=== PATIENT | female | born 1960 | race Caucasian/White ===

== ENCOUNTER 2016-07-25 14:59 | Outpatient (CLI) | payer OTHER ==
[~2016-07-25 14:59] MED LIST: CYMBALTA30 MG PO; HYCET1 ML PO; TUMS500 MG; TURMERIC CURCU500 MG PO; VITAMIN D-31000 UNIT PO; [UNRECOGNIZED DRUG - OTHER] PO; [UNRECOGNIZED DRUG - OTHER] PO
--- NOTE | 2016-07-25 16:31 | DIAGNOSTIC IMAGING REPORT ---
PROCEDURE: US LTD BREAST ULTRASOUND - RT INDICATION: 6 MONTH FOLLOW UP TO CONFIRM STABILITY TECHNIQUE: High-resolution ultrasound of the right breast. COMPARISON: Right mammogram and breast ultrasound 11/08/2015. FINDINGS: Ultrasound targeted to the right upper outer quadrant demonstrates normal breast parenchyma. No solid masses or cysts. The previously noted small intramammary lymph nodes are no longer present. IMPRESSION: 1. Negative right breast ultrasound 2. Results discussed with the patient 3. Result Code: 1- Negative.
== END 2016-07-25 23:00 ==
LOC: US SRH 14:59
DX: R92.8 Other abnormal and inconclusive findings on diagnostic imaging of breast (principal)